=== PATIENT | female | born 2005 | race Hispanic/Latino ===

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

== ENCOUNTER 2023-07-01 09:49 | Emergency (ER) | payer MEDICAID ==
[~2023-07-01] VITALS: Ht 167 cm; Wt 120.0 kg
[~2023-07-01 09:49] MED LIST changes: +ACHD5005 PO; +DOCU-143 PO
[2023-07-01 11:22] LABS: BASOPHILS % (AUTO) 0 % (0-10); EOSINOPHILS # (AUTO) 0.1 10^3/uL (0.0-0.3); EOSINOPHILS % (AUTO) 0 % (0-10); HEMATOCRIT 40 % (35-52); HEMOGLOBIN 13.8 g/dL (11.5-16.0); LYMPHOCYTES # (AUTO) 3.4 10^3/uL (1.0-4.0); LYMPHOCYTES % (AUTO) 25 % (12-44); MEAN CORPUSCULAR HEMOGLOBIN 30 pg (25-34); MEAN CORPUSCULAR HGB CONC 35 g/dL (32-36); MEAN CORPUSCULAR VOLUME 88 fL (80-99); MEAN PLATELET VOLUME 9.4 fL (9.0-12.2); MONOCYTES % (AUTO) 8 % (0-12); NEUTROPHILS % (AUTO) 67 % (42-75); PLATELET COUNT 362 10^3/uL (130-400); WHITE BLOOD COUNT 13.6 10^3/uL (4.3-11.0)
--- NOTE | 2023-07-01 11:40 | ED GU-Female ---
General Chief Complaint: OB < 20 WEEKS Stated Complaint: MISCARRIAGE | VAGINAL BLEEDING Nursing Triage Note: PT AMB TO RM 10 PT STATES HAD MISCARRIAGE AT APPROX 0200 THIS AM. PT STATES PASSED TISSUE. PT STATES EARLIER HAD ALOT OF BLEEDING BUT HAS SLOWED TO A PAD EVERY FEW HOURS. PT STATES HAVING CRAMPING IN LOWER ABD 7/10 PAIN. HAS TAKEN TYLENOL AT APPROX 0400. PT STATES FROM ULTRA SOUND AT [facility] SHE IS APPROX 11-12 WEEKS . PT HAS BROUGHT TISSUE SHE PASSED WITH HER. History of Present Illness Date Seen by Provider: Jul 01, 2023 Time Seen by Provider: 10:18 Initial Comments 18-year-old female presents with concerns for miscarriage. Patient reports that she is approximately 11 to 12 weeks and passed some tissue around 2 AM this morning. Patient reports she had quite a bit of bleeding at the time but now that has slowed. She is still having some cramping in her lower abdomen. She did take some Tylenol around 4:00 for the discomfort. Reports that she did bring the tissue that she passed with her. Allergies and Home Medications Allergies Coded Allergies: Dolores Known Allergies (Unverified Allergy, Mild, 10/25/09) Patient Home Medication List Home Medication List Reviewed: Yes Docusate Sodium (Colace) 100 Mg Capsule, 100 MG PO BID Prescribed by: NICHOLE ENGLE on 02/19/21905 Hydrocodone/Acetaminophen (Hydrocodone-Acetamin 5-325 mg) 1 Each Tablet, 1 EACH PO Q4H PRN for PAIN-MODERATE (5-7) Prescribed by: NICHOLE ENGLE on 02/19/21905 Review of Systems Review of Systems Constitutional: see HPI Respiratory: no symptoms reported Cardiovascular: no symptoms reported Gastrointestinal: no symptoms reported Genitourinary: see HPI : Yes Musculoskeletal: no symptoms reported Skin: no symptoms reported Psychiatric/Neurological: No Symptoms Reported Endocrine: No Symptoms Reported Hematologic/Lymphatic: No Symptoms Reported Past Vcpntml-Xmysod-Fmxejb Hx Immunizations Up To Date PED Vaccines UTD: Yes Seasonal Allergies Seasonal Allergies: Yes Past Medical History Surgeries: Yes (OVARIAN CYST REMOVED) Respiratory: Yes Asthma Currently Using CPAP: No Currently Using BIPAP: No Cardiac: No Neurological: No Last Menstrual Period: March 18, 2023 Reproductive Disorders: No Female Reproductive Disorders: Ovarian Cyst Sexually Transmitted Disease: No HIV/AIDS: No Genitourinary: No Gastrointestinal: No Musculoskeletal: No Endocrine: No HEENT: No Cancer: No Did You Recieve Any Treatments: No Psychosocial: No Integumentary: No Blood Disorders: No Adverse Reaction/Blood Tranf: No Family Medical History No Pertinent Family Hx Physical Exam Vital Signs Vital Signs - First Documented 07/01/23 10:20 Temp 37.4 Pulse 99 Resp 16 B/P (MAP) 136/81 (99) Pulse Ox 98 Capillary Refill : Less Than 3 Seconds Height, Weight, BMI Height: '" Weight: lbs. oz. kg; 43.00 BMI Method:Actual General Appearance: WD/WN, no apparent distress Cardiovascular: normal peripheral pulses, regular rate, rhythm Respiratory: lungs clear, normal breath sounds Gastrointestinal: soft, other (Mild tenderness lower abdomen) Neurologic/Psychiatric: alert, normal mood/affect, oriented x 3 Skin: normal color, warm/dry Progress/Results/Core Measures Suspected Sepsis SIRS Temperature: Pulse: 99 Respiratory Rate: 16 Laboratory Tests 07/01/23 10:59: White Blood Count 13.6H Blood Pressure 136 /81 Mean: 99 Laboratory Tests 07/01/23 10:59: Platelet Count 362 Results/Orders Lab Results Laboratory Tests Test 07/01/23 10:59 Range/Units White Blood Count 13.6 H 4.3-11.0 10^3/uL Red Blood Count 4.55 3.80-5.11 10^6/uL Hemoglobin 13.8 11.5-16.0 g/dL Hematocrit 40 35-52 % Mean Corpuscular Volume 88 80-99 fL Mean Corpuscular Hemoglobin 30 25-34 pg Mean Corpuscular Hemoglobin Concent 35 32-36 g/dL Red Cell Distribution Width 12.4 10.0-14.5 % Platelet Count 362 130-400 10^3/uL Mean Platelet Volume 9.4 9.0-12.2 fL Immature Granulocyte % (Auto) 0 % Neutrophils (%) (Auto) 67 42-75 % Lymphocytes (%) (Auto) 25 12-44 % Monocytes (%) (Auto) 8 0-12 % Eosinophils (%) (Auto) 0 0-10 % Basophils (%) (Auto) 0 0-10 % Neutrophils # (Auto) 9.0 H 1.8-7.8 10^3/uL Lymphocytes # (Auto) 3.4 1.0-4.0 10^3/uL Monocytes # (Auto) 1.0 0.0-1.0 10^3/uL Eosinophils # (Auto) 0.1 0.0-0.3 10^3/uL Basophils # (Auto) 0.0 0.0-0.1 10^3/uL Immature Granulocyte # (Auto) 0.1 0.0-0.1 10^3/uL Human Chorionic Gonadotropin, Quant [id number] H <5 MIU/ML My Orders Orders - CLAY SINGLEOTN DO Hcg,Quantitative (07/01/23 10:26) Cbc With Automated Diff (07/01/23 10:34) Abo Rh Type (07/01/23 10:35) General/Regular (07/01/23 Lunch) Vital Signs/I&O 07/01/23 10:20 Temp 37.4 Pulse 99 Resp 16 B/P (MAP) 136/81 (99) Pulse Ox 98 Capillary Refill : Less Than 3 Seconds Blood Pressure Mean: 99 Progress Note : Progress Note Patient with complete miscarriage. Patient's "tissue" was actually a fetus approximately 17 weeks weighing 400 g. Patient's OB was contacted who came and seen her in the ER. Based on the records she did have 2 ultrasounds and is Rh+. It was determined that on June 18 she was approximately 12 weeks . The fetus is under 20 weeks further records. Patient was seen in the ER by her OB, pastoral care and OB nurse. At this time no further work-up is indicated. We will give her off next week as she is to follow-up with her OB with appointme nt already been made prior to returning to work. At this time stable and discharged home . Departure Impression Primary Impression: Complete miscarriage Disposition: 01 HOME, SELF-CARE Condition: Stable Departure-Patient Inst. Referrals: [facility] (PCP/Family) Primary Care Physician Add. Discharge Instructions: please follow with Dr Pace on 07/08 at 940am. Call her office with any concerns or return to ER All discharge instructions reviewed with patient and/or family. Voiced understanding. Work/School Note: Work Release Form Date Seen in the Emergency Department: Jul 01, 2023 Return to Work: Jul 08, 2023 Restrictions: Patient to follow-up with hearing care practitioner prior to clearance for return CLAY SINGLETON DO Jul 01, 2023 11:40
[2023-07-01 12:31] VITALS: BP 135/90
--- NOTE | 2023-07-01 13:54 | Consultation ---
HPI History of Present Illness: 18 yo G1 at 13w4d by 11 week US with unsure LMP presented to ER due to miscarriage last night. She states she had some cramping, thought it was normal but then delivered a fully formed fetus, followed by some dark nearly black clumpy material. She had very heavy bleeding with some clots and some tissue for a few hours after, that has now slowed down markedly. She denies chest pain, shortness of breath, dizziness. She did feel sick a few days ago with feverish type symptoms and body aches, had thought possible COVID as it was present at the [employer] she works at, positive case on Tuesday, she worked on Tuesday in a different area, she does not feel sick any longer. Source: patient Date seen by provider: Jul 01, 2023 Time Seen by Provider: 11:30 Attending Physician [facility] P[facility] Admitting Physician: Attending Physician: Consult Date of Admission Home Medications Home Medications Reviewed patient Home Medication Reconciliation performed by pharmacy medication reconciliations nanotechnology engineering technician and/or nursing. Patients Allergies have been reviewed. Allergies Coded Allergies: NKANo Known Allergies (Unverified Allergy, Mild, 10/25/09) NNS-Yphdkw-Tgxrln Hx Patient Social History Smoking Status: Never a Smoker 2nd Hand Smoke Exposure: No Recent Hopitalizations: No Alcohol Use?: No Immunizations Up To Date First/Initial COVID19 Vaccinat: YES Second COVID19 Vaccination Ian: YES Past Medical History PMHx: PCOS SurgHx: ovarian cyst removal Family Medical History Significant Family History: No Pertinent Family Hx Review of Systems ([facility]) Constitutional: No fever Respiratory: No short of breath Cardiovascular: No chest pain Genitourinary: no symptoms reported Musculoskeletal: see HPI Skin: no symptoms reported Reviewed Test Results Reviewed Test Results Lab Laboratory Tests Test 07/01/23 10:59 Range/Units White Blood Count 13.6 H 4.3-11.0 10^3/uL Red Blood Count 4.55 3.80-5.11 10^6/uL Hemoglobin 13.8 11.5-16.0 g/dL Hematocrit 40 35-52 % Mean Corpuscular Volume 88 80-99 fL Mean Corpuscular Hemoglobin 30 25-34 pg Mean Corpuscular Hemoglobin Concent 35 32-36 g/dL Red Cell Distribution Width 12.4 10.0-14.5 % Platelet Count 362 130-400 10^3/uL Mean Platelet Volume 9.4 9.0-12.2 fL Immature Granulocyte % (Auto) 0 % Neutrophils (%) (Auto) 67 42-75 % Lymphocytes (%) (Auto) 25 12-44 % Monocytes (%) (Auto) 8 0-12 % Eosinophils (%) (Auto) 0 0-10 % Basophils (%) (Auto) 0 0-10 % Neutrophils # (Auto) 9.0 H 1.8-7.8 10^3/uL Lymphocytes # (Auto) 3.4 1.0-4.0 10^3/uL Monocytes # (Auto) 1.0 0.0-1.0 10^3/uL Eosinophils # (Auto) 0.1 0.0-0.3 10^3/uL Basophils # (Auto) 0.0 0.0-0.1 10^3/uL Immature Granulocyte # (Auto) 0.1 0.0-0.1 10^3/uL Human Chorionic Gonadotropin, Quant [id number] H <5 MIU/ML Physical Exam-([facility]) Physical Exam Vital Signs VS - Last 72 Hours, by Label 07/01/23 07/01/23 10:20 12:31 Temp 37.4 Pulse 99 72 Resp 16 16 B/P (MAP) 136/81 (99) 135/90 Pulse Ox 98 97 Capillary Refill : Less Than 3 Seconds General Appearance: WD/WN, no apparent distress Respiratory: lungs clear Cardiovascular: regular rate, rhythm, no murmur Gastrointestinal: normal bowel sounds, non tender, soft Extremities: no pedal edema Neurologic/Psychiatric: alert, normal mood/affect Skin: normal color, warm/dry Assessment/Plan Assessment/Plan (1) Complete miscarriage Status: Acute Assessment & Plan: Suspect complete miscarriage given history, but at 13 weeks and with prior normal ultrasound and FHTs, uncertain cause and higher risk for retained products and infection. Discussed signs to watch for including fever, increased bleeding, pain and that she should come back to the ER if those occur. Will follow up in clinic early next week to monitor symptoms, vitals and labs. Offered to have [facility]/therapy reach out, she declined. JOHN HEATH MD Jul 01, 2023 13:54
== END 2023-07-01 12:31 | disposition home or self-care (01) ==
LOC: EDUNIT# 09:49 → ER 09:51
DX: O03.9 Complete or unspecified spontaneous abortion without complication (principal)
CPT/HCPCS: 36415; 84702; 85025; 86900; 86901; 99282

== ENCOUNTER 2023-07-04 16:28 | Day surgery (SDC) | payer MEDICAID ==
[2023-07-04] VITALS (8 sets, daily range): BP systolic 111–133; BP diastolic 67–79
[~2023-07-04] VITALS: Ht 167 cm; Wt 120.2 kg
[2023-07-04] MEDS ORDERED: fentaNYL INJECTION 100 MCG/2 ML VIAL IVP STA (16:56)
[2023-07-04] MEDS ORDERED: fentaNYL INJECTION 100 MCG/2 ML VIAL ONE ×2 (16:58→20:02)
[2023-07-04] MEDS ORDERED: ACETAMINOPHEN 500 MG TABLET PO PRN (17:00)
[2023-07-04] MEDS ORDERED: NS IV 1000 ML 1,000 ML IV SCH (17:00)
[2023-07-04 17:04] LABS: BASOPHILS # (AUTO) 0.1 10^3/uL (0.0-0.1); BASOPHILS % (AUTO) 1 % (0-10); EOSINOPHILS # (AUTO) 0.2 10^3/uL (0.0-0.3); EOSINOPHILS % (AUTO) 2 % (0-10); HEMATOCRIT 34 % (35-52); HEMOGLOBIN 11.7 g/dL (11.5-16.0); LYMPHOCYTES # (AUTO) 3.7 10^3/uL (1.0-4.0); LYMPHOCYTES % (AUTO) 32 % (12-44); MEAN CORPUSCULAR HEMOGLOBIN 31 pg (25-34); MEAN CORPUSCULAR HGB CONC 35 g/dL (32-36); MEAN CORPUSCULAR VOLUME 89 fL (80-99); MEAN PLATELET VOLUME 9.4 fL (9.0-12.2); MONOCYTES % (AUTO) 9 % (0-12); NEUTROPHILS # (AUTO) 6.6 10^3/uL (1.8-7.8); NEUTROPHILS % (AUTO) 57 % (42-75); PLATELET COUNT 337 10^3/uL (130-400); WHITE BLOOD COUNT 11.6 10^3/uL (4.3-11.0)
[2023-07-04 17:10] LABS: POTASSIUM 3.8 MMOL/L (3.6-5.0)
[2023-07-04 17:11] LABS: CALCIUM 8.9 MG/DL (8.5-10.1)
[2023-07-04 17:12] LABS: TOTAL PROTEIN 6.4 GM/DL (6.4-8.2)
[2023-07-04 17:14] LABS: BILIRUBIN,TOTAL 0.2 MG/DL (0.1-1.0)
[2023-07-04 17:16] LABS: CREATININE SERUM 0.71 MG/DL (0.60-1.30)
--- NOTE | 2023-07-04 17:16 | ED Abdominal Pain ---
General Chief Complaint: Abdominal/GI Problems Stated Complaint: BLEEDING/PAIN FEVER Nursing Triage Note: ARRIVED VIA AMB TO ROOM 06. PT HAD A MISCARRIAGE ON TUESDAY AND WAS SEEN HERE. TODAY COMPLAINS OF LOWER ABD PAIN, HEAVY BLEEDING, AND FEVER. LAST DOSE OF TYLENOL WAS THIS AM. PT IS DIAPHORETIC. History of Present Illness Date Seen by Provider: Jul 04, 2023 Time Seen by Provider: 16:45 Initial Comments 18-year-old female presents for increased abdominal pain and vaginal bleeding. She was seen in this emergency department on 07/01/23 for a miscarriage, she passed fetus several hours before presenting, no ultrasound was performed. She was evaluated by her OB in the emergency department. Labs were stable and she was discharged to home. She had minimal bleeding through the weekend and no fevers. She reports that approximately 1500 today sharp lower abdominal and pelvic pain with increased vaginal bleeding. Bleeding has been dark red to brown. She has saturated one pad, in last hour. She is O+, this was her first . She has tried Tylenol for the fever and pain, last dose 10:00 am She last had solid food at 12:00 today, she has had sips of water and orange juice throughout the afternoon. Timing/Duration: 1-3 Hours Severity/Quality: Moderate Location: Suprapubic Radiation: Flank (bilat) Associated Symptoms: Back Pain (low back); No Chest Pain; Diaphoresis, Fever/ Chills; No Headache, No Nausea/Vomiting, No Shortness of Air, No Swelling/Mass in Abdomen, No Weakness Allergies and Home Medications Allergies Coded Allergies: NKANo Known Allergies (Unverified Allergy, Mild, 10/25/09) Patient Home Medication List Home Medication List Reviewed: Yes Cephalexin (Cephalexin) 500 Mg Tablet, 500 MG PO QID Prescribed by: SHARMAINE HU on 07/04/232003 Ibuprofen (Ibuprofen) 600 Mg Tablet, 600 MG PO Q6H Prescribed by: SHARMAINE HU on 07/04/232003 Discontinued Medications Docusate Sodium (Colace) 100 Mg Capsule, 100 MG PO BID Prescribed by: NICHOLE ENGLE on 02/19/21905 Hydrocodone/Acetaminophen (Hydrocodone-Acetamin 5-325 mg) 1 Each Tablet, 1 EACH PO Q4H PRN for PAIN-MODERATE (5-7) Prescribed by: NICHOLE ENGLE on 4/8/21 0906 Review of Systems Review of Systems Constitutional: no symptoms reported, see HPI Gastrointestinal: See HPI, Abdominal Pain Genitourinary: See HPI, Discharge (vaginal bleeding) All Other Systems Reviewed Negative Unless Noted: Yes Past Ojbovby-Tuclcj-Laiwqd Hx Patient Social History Tobacco Use?: No Substance use?: No Alcohol Use?: No Immunizations Up To Date PED Vaccines UTD: Yes First/Initial COVID19 Vaccinat: YES Second COVID19 Vaccination Ian: YES Seasonal Allergies Seasonal Allergies: Yes Past Medical History Surgery/Hospitalization HX: NONE Surgeries: Yes (OVARIAN CYST REMOVED) Respiratory: Yes Asthma Currently Using CPAP: No Currently Using BIPAP: No Cardiac: No Neurological: No : No Last Menstrual Period: March 18, 2023 Hx : 1 Hx Para: 0 Hx Total # of Abortions (Sp): 1 Reproductive Disorders: No Female Reproductive Disorders: Ovarian Cyst Sexually Transmitted Disease: No HIV/AIDS: No Genitourinary: No Gastrointestinal: No Musculoskeletal: No Endocrine: No HEENT: No Cancer: No Did You Recieve Any Treatments: No Psychosocial: No Integumentary: No Blood Disorders: No Adverse Reaction/Blood Tranf: No Family Medical History Reviewed Nursing Family Hx No Pertinent Family Hx Physical Exam Vital Signs Vital Signs - First Documented 07/04/23 16:35 Temp 38.1 Pulse 84 Resp 16 B/P (MAP) 140/83 (102) Pulse Ox 98 O2 Delivery Room Air Capillary Refill : Less Than 3 Seconds Height/Weight/BMI Height: '" Weight: lbs. oz. kg; 43.00 BMI Method:Actual General Appearance: WD/WN, mild distress (secondary for pain) Neck: non-tender, full range of motion, supple, normal inspection Respiratory: chest non-tender, lungs clear, normal breath sounds Cardiovascular: normal peripheral pulses, regular rate, rhythm Gastrointestinal: normal bowel sounds, soft, tenderness (lower abdomen, pelvis and bilat flank pain) Neurologic/Psychiatric: no motor/sensory deficits, alert, normal mood/affect, oriented x 3 Skin: normal color, warm/dry Focused Exam Lactate Level 07/04/23 16:55: Lactic Acid Level 1.53 Lactic Acid Level Laboratory Tests Test 07/04/23 16:55 Lactic Acid Level 1.53 MMOL/L (0.50-2.00) Progress/Results/Core Measures Results/Orders Lab Results Laboratory Tests Test 07/04/23 16:55 07/04/23 18:08 Range/Units White Blood Count 11.6 H 4.3-11.0 10^3/uL Red Blood Count 3.80 3.80-5.11 10^6/uL Hemoglobin 11.7 11.5-16.0 g/dL Hematocrit 34 L 35-52 % Mean Corpuscular Volume 89 80-99 fL Mean Corpuscular Hemoglobin 31 25-34 pg Mean Corpuscular Hemoglobin Concent 35 32-36 g/dL Red Cell Distribution Width 12.4 10.0-14.5 % Platelet Count 337 130-400 10^3/uL Mean Platelet Volume 9.4 9.0-12.2 fL Immature Granulocyte % (Auto) 0 % Neutrophils (%) (Auto) 57 42-75 % Lymphocytes (%) (Auto) 32 12-44 % Monocytes (%) (Auto) 9 0-12 % Eosinophils (%) (Auto) 2 0-10 % Basophils (%) (Auto) 1 0-10 % Neutrophils # (Auto) 6.6 1.8-7.8 10^3/uL Lymphocytes # (Auto) 3.7 1.0-4.0 10^3/uL Monocytes # (Auto) 1.0 0.0-1.0 10^3/uL Eosinophils # (Auto) 0.2 0.0-0.3 10^3/uL Basophils # (Auto) 0.1 0.0-0.1 10^3/uL Immature Granulocyte # (Auto) 0.1 0.0-0.1 10^3/uL Prothrombin Time 13.7 12.2-14.7 SEC INR Comment 1.0 0.8-1.4 Activated Partial Thromboplast Time 27 24-35 SEC Sodium Level 141 135-145 MMOL/L Potassium Level 3.8 3.6-5.0 MMOL/L Chloride Level 109 H 98-107 MMOL/L Carbon Dioxide Level 23 21-32 MMOL/L Anion Gap 9 5-14 MMOL/L Blood Urea Nitrogen 8 7-18 MG/DL Creatinine 0.71 0.60-1.30 MG/DL Estimat Glomerular Filtration Rate 125 BUN/Creatinine Ratio 11 Glucose Level 117 H 70-105 MG/DL Lactic Acid Level 1.53 0.50-2.00 MMOL/L Calcium Level 8.9 8.5-10.1 MG/DL Corrected Calcium 8.9 8.5-10.1 MG/DL Total Bilirubin 0.2 0.1-1.0 MG/DL Aspartate Amino Transf (AST/SGOT) 18 5-34 U/L Alanine Aminotransferase (ALT/SGPT) 31 0-55 U/L Alkaline Phosphatase 56 40-136 U/L Total Protein 6.4 6.4-8.2 GM/DL Albumin 4.0 3.2-4.5 GM/DL Urine Color RED H Urine Clarity CLEAR Urine pH >=9.0 5-9 Urine Specific [place] 1.015 L 1.016-1.022 Urine Protein 3+ H NEGATIVE Urine Glucose (UA) NEGATIVE NEGATIVE Urine Ketones 1+ H NEGATIVE Urine Nitrite POSITIVE H NEGATIVE Urine Bilirubin 1+ H NEGATIVE Urine Urobilinogen 1.0 < = 1.0 MG/DL Urine Leukocyte Esterase TRACE H NEGATIVE Urine RBC (Auto) 3+ H NEGATIVE Urine RBC TNTC H /HPF Urine WBC 2-5 /HPF Urine Squamous Epithelial Cells 5-10 /HPF Urine Crystals PRESENT H /LPF Urine Amorphous Sediment RARE ABIGAIL URATES H /LPF Urine Bacteria TRACE /HPF Urine Casts NONE /LPF Urine Mucus SMALL H /LPF Urine Culture Indicated CULTURE PENDING My Orders Orders - LILY FIGUEROA Cbc With Automated Diff (07/04/23 16:56) Comprehensive Metabolic Panel (07/04/23 16:56) Blood Culture (07/04/23 16:56) Urinalysis (07/04/23 16:56) Urine Culture (07/04/23 16:56) Protime With Inr (07/04/23 16:56) Partial Thromboplastin Time (07/04/23 16:56) Chest 1 View, Ap/Pa Only (07/04/23 16:56) Acetaminophen Tablet (Acetaminophen Ta (07/04/23 17:00) Ed Iv/Invasive Line Start (07/04/23 16:56) Vital Signs Adult Sepsis Patie Q15M (07/04/23 16:56) Lactic Acid Analyzer (07/04/23 16:56) Ns Iv 1000 Ml (Sodium Chloride 0.9%) (07/04/23 17:00) Fentanyl Injection (Fentanyl Injection (07/04/23 16:56) Fentanyl Injection (Fentanyl Injection (07/04/23 16:58) Us Ob<14 Wks Sngle W/Transvag (07/04/23 16:56) Misoprostol Tablet (Misoprostol Tablet) (07/04/23 18:21) Medications Given in ED Current Medications Medications Dose Ordered Sig/Mo Route Start Time Stop Time Status Last Admin Dose Admin Acetaminophen 1,000 mg ONCE PRN PO 07/04/23 17:00 07/04/23 17:32 DC 07/04/23 17:31 1,000 MG Cefazolin Sodium 2000 mg/Sodium Chloride 50 ml @ 100 mls/hr ONCE ONCE IV 07/04/23 20:00 07/04/23 22:18 DC 07/04/23 20:17 100 MLS/HR Ketorolac Tromethamine 30 mg ONCE ONCE IVP 07/04/23 20:00 07/04/23 22:18 DC 07/04/23 21:13 30 MG Vital Signs/I&O 07/04/23 16:35 Temp 38.1 Pulse 84 Resp 16 B/P (MAP) 140/83 (102) Pulse Ox 98 O2 Delivery Room Air Blood Pressure Mean: 102 Progress Progress Note : Time: 16:45 Progress Note Patient assessed, will obtain labs, septic work-up, ultrasound to determine if retained placental matter, IV fluids, Tylenol 1000 mg for fever, fentanyl 50 mcg IV for pain. [address] Hu about patient, recommended giving Cytotec and awaiting ultrasound. Hgb 13.7 on 07/01/23, now 11.7. 1814 patient reports less pain. To US. 0 less vaginal bleeding, changed pad approx 15 min ago. 1909 US results reviewed with Dr. Hu, recommended D shanelle CDeng Cap Coverer notified. Discussed with patient, she is agreeable with surgical plan. Temp 99.[address] Hu in ED to assess patient. Diagnostic Imaging Diagonstic Imaging: Xray Plain Films/CT/US/NM/MRI: chest Comments NAME: RAYMOND [facility] REC#: [id number] PT STATUS: REG ER : 2003 PHYSICIAN: LILY FIGUEROA SHREDDED FILLER CUTTER OPERATOR ADMIT DATE: 07/04/23/ER Signed Date of Exam:07/04/23 CHEST 1 VIEW, AP/PA ONLY CHEST 1 VIEW, AP/PA ONLY INDICATION: SOA. COMPARISON: None. FINDINGS: Lungs: Low lung volume. No focal consolidation. Stable pulmonary vasculature. Pleura: No pleural effusion or pneumothorax. Heart and Mediastinum: Cardiomediastinal silhouette and great vessels of the thorax are stable. Osseous Structures and Soft Tissues: No acute osseous abnormality. Normal soft tissues. IMPRESSION: No acute cardiopulmonary process. Dictated by: Dictated on workstation # [id number] Dict: 07/04/231736 Trans: 07/04/231738 [facility] [id number] Interpreted by: DILMA KERR DO Electronically signed by: DILMA KERR DO 07/04/231738 Reviewed: Reviewed by Me Diagonstic Imaging: Ultrasound Plain Films/CT/US/NM/MRI: pelvis Comments NAME: RAYMOND MARION [facility] REC#: [id number] PT STATUS: REG ER : 2003 PHYSICIAN: LILY FIGUEROA ADMIT DATE: 07/04/23/ER Signed Date of Exam:07/04/23 US OB<14 WKS SNGLE W/TRANSVAG EXAMINATION: Transabdominal and transvaginal vaginal pelvic ultrasound TECHNIQUE: Transabdominal transpelvic pelvic ultrasound performed. HISTORY: miscarriage possible retained tissue, fever, bleeding. Miscarriage last week. COMPARISON: Pelvic ultrasound on 04/05/2017 FINDINGS: The uterus measures 12.5 x 5.9 x 6.4 cm. The endometrium demonstrates extensive heterogenous thickening measuring between 1.5 to 2.2 cm with areas of increased vascularity. There is a cystic mass within the right adnexa measuring 6.1 x 4.7 x 4.2 cm. The left ovary measures 2.6 x 2.0 x 1.6 cm and has a normal appearance. No free fluid within the pelvis. IMPRESSION: Findings concerning for retained products of conception with significant thickening of the endometrium with areas of increased vascularity. Right adnexal cyst measuring 6.1 x 4.7 x 4.2 cm possibly representing a right ovarian cyst. Recommend attention on follow-up exam. Dictated by: Dictated on workstation # [id number] Dict: 07/04/231906 Trans: 07/04/231909 [facility] [id number] Interpreted by: DILMA KERR DO Electronically signed by: DILMA KERR DO 07/04/231909 Departure Impression Primary Impression: Vaginal bleeding Additional Impressions: Retained placenta Qualified Codes: O73.0 - Retained placenta without hemorrhage Incomplete miscarriage UTI (urinary tract infection) Qualified Codes: N30.01 - Acute cystitis with hematuria Disposition: ADMITTED INPATIENT Condition: Stable Admissions Decision to Admit/Date: Jul 04, 2023 Time/Decision to Admit Time: 19:05 Departure-Patient Inst. Referrals: [facility] (PCP/Family) Primary Care Physician Scripts Cephalexin (Cephalexin) 500 Mg Tablet 500 MG PO QID, #28 TAB Prov: SHARMAINE HU DO 07/04/23 Ibuprofen (Ibuprofen) 600 Mg Tablet 600 MG PO Q6H for PAIN, #60 TAB 0 Refills Prov: SHARMAINE HU DO 07/04/23 Copy Copies To 1: JOHN HEATH MD, AMY ARNP Jul 04, 2023 17:16
[2023-07-04 17:27] LABS: PROTHROMBIN TIME PATIENT 13.7 SEC (12.2-14.7)
--- NOTE | 2023-07-04 17:40 | Diagnostic Imaging Report ---
CHEST 1 VIEW, AP/PA ONLY INDICATION: SOA. COMPARISON: None. FINDINGS: Lungs: Low lung volume. No focal consolidation. Stable pulmonary vasculature. Pleura: No pleural effusion or pneumothorax. Heart and Mediastinum: Cardiomediastinal silhouette and great vessels of the thorax are stable. Osseous Structures and Soft Tissues: No acute osseous abnormality. Normal soft tissues. IMPRESSION: No acute cardiopulmonary process. Dictated by: Dictated on workstation # [id number]
[2023-07-04 19:00] LABS: CLARITY,URINE CLEAR; COLOR,URINE RED; GLUCOSE, URINE (UA) NEGATIVE (NEGATIVE); KETONES,URINE 1+ (NEGATIVE); LEUKOCYTE ESTERASE ,URINE TRACE (NEGATIVE); NITRITE,URINE POSITIVE (NEGATIVE); PH,URINE >=9.0 (5-9); PROTEIN,URINE 3+ (NEGATIVE); RBC,URINE TNTC /HPF
[2023-07-04 19:01] LABS: AMORPHOUS SEDIMENT,UR RARE AMOR URATES /LPF; BACTERIA,URINE TRACE /HPF; BILIRUBIN,URINE 1+ (NEGATIVE)
--- NOTE | 2023-07-04 19:12 | Diagnostic Imaging Report ---
EXAMINATION: Transabdominal and transvaginal vaginal pelvic ultrasound TECHNIQUE: Transabdominal transpelvic pelvic ultrasound performed. HISTORY: miscarriage possible retained tissue, fever, bleeding. Miscarriage last week. COMPARISON: Pelvic ultrasound on 04/05/2017 FINDINGS: The uterus measures 12.5 x 5.9 x 6.4 cm. The endometrium demonstrates extensive heterogenous thickening measuring between 1.5 to 2.2 cm with areas of increased vascularity. There is a cystic mass within the right adnexa measuring 6.1 x 4.7 x 4.2 cm. The left ovary measures 2.6 x 2.0 x 1.6 cm and has a normal appearance. No free fluid within the pelvis. IMPRESSION: Findings concerning for retained products of conception with significant thickening of the endometrium with areas of increased vascularity. Right adnexal cyst measuring 6.1 x 4.7 x 4.2 cm possibly representing a right ovarian cyst. Recommend attention on follow-up exam. Dictated by: Dictated on workstation # [id number]
[2023-07-04] MEDS ORDERED: D5 LR 1,000 ML IV SOLN 1,000 ML IV SCH (20:00)
[2023-07-04] MEDS ORDERED: KETOROLAC INJ 30 MG/ML VIAL IVP ONE (20:00)
[2023-07-04] MEDS ORDERED: ONDANSETRON INJECTION 4 MG/2 ML (SDV) IVP PRN ×2 (20:00→21:15)
[2023-07-04] MEDS ORDERED: HYDROcodone/ACETAMINOPHEN 5 MG/325 MG TABLET PO PRN (20:00)
[2023-07-04] MEDS ORDERED: ceFAZolin INJECTION 2,000 MG in NS (IVPB) 50 ML 50 ML IV ONE (20:00)
--- NOTE | 2023-07-04 20:01 | History & Physical-Surgical ---
HPO-Surgical History of Present Illness Chief Complaint: ARRIVED VIA AMB TO ROOM 06. PT HAD A MISCARRIAGE ON TUESDAY AND WAS SEEN HERE. TODAY COMPLAINS OF LOWER ABD PAIN, HEAVY BLEEDING, AND FEVER. LAST DOSE OF TYLENOL WAS THIS AM. PT IS DIAPHORETIC. Diagnosis/Surgical Indication: Incomplete Ab Procedure: Suction D and C Date of Surgery: Jul 04, 2023 Allergies and Home Medications Allergies Coded Allergies: NKANo Known Allergies (Unverified Allergy, Mild, 10/25/09) Patient Home Medication List Home Medication List Reviewed: Yes Docusate Sodium (Colace) 100 Mg Capsule, 100 MG PO BID Prescribed by: NICHOLE ENGLE on 02/19/21905 Hydrocodone/Acetaminophen (Hydrocodone-Acetamin 5-325 mg) 1 Each Tablet, 1 EACH PO Q4H PRN for PAIN-MODERATE (5-7) Prescribed by: NICHOLE ENGLE on 02/19/21905 Past Lyckcrx-Xguovm-Evgupi Hx Patient Social History 2nd Hand Smoke Exposure: No Recent Hopitalizations: No Alcohol Use?: No Immunizations Up To Date Pediatric: Yes Seasonal Allergies Seasonal Allergies: Yes Surgeries Yes (OVARIAN CYST REMOVED) Respiratory Yes Currently Using CPAP: No Currently Using BIPAP: No Cardiovascular No Neurological No Reproductive System : No Last Menstrual Period: March 18, 2023 Hx : 1 Hx Para: 0 Hx Total # of Abortions (Spona: 1 Hx Reproductive Disorders: No Sexually Transmitted Disease: No HIV/AIDS: No Female Reproductive Disorders: Ovarian Cyst Genitourinary No Gastrointestinal No Musculoskeletal No Endocrine History of Endocrine Disorders: No HEENT History of HEENT Disorders: No Cancer No Did You Recieve Any Treatments: No Psychosocial History of Psychiatric Problem: No Integumentary History of Skin or Integumenta: No Blood Transfusions History of Blood Disorders: No Adverse Reaction to a Blood Tr: No Family Medical History Significant Family History: No Pertinent Family Hx Exam Vital Signs Vital Signs 07/04/23 16:35 Temp 38.1 Pulse 84 Resp 16 B/P (MAP) 140/83 (102) Pulse Ox 98 O2 Delivery Room Air Capillary Refill : Less Than 3 Seconds Labs Laboratory Tests Test 07/04/23 16:55 07/04/23 18:08 Range/Units White Blood Count 11.6 H 4.3-11.0 10^3/uL Red Blood Count 3.80 3.80-5.11 10^6/uL Hemoglobin 11.7 11.5-16.0 g/dL Hematocrit 34 L 35-52 % Mean Corpuscular Volume 89 80-99 fL Mean Corpuscular Hemoglobin 31 25-34 pg Mean Corpuscular Hemoglobin Concent 35 32-36 g/dL Red Cell Distribution Width 12.4 10.0-14.5 % Platelet Count 337 130-400 10^3/uL Mean Platelet Volume 9.4 9.0-12.2 fL Immature Granulocyte % (Auto) 0 % Neutrophils (%) (Auto) 57 42-75 % Lymphocytes (%) (Auto) 32 12-44 % Monocytes (%) (Auto) 9 0-12 % Eosinophils (%) (Auto) 2 0-10 % Basophils (%) (Auto) 1 0-10 % Neutrophils # (Auto) 6.6 1.8-7.8 10^3/uL Lymphocytes # (Auto) 3.7 1.0-4.0 10^3/uL Monocytes # (Auto) 1.0 0.0-1.0 10^3/uL Eosinophils # (Auto) 0.2 0.0-0.3 10^3/uL Basophils # (Auto) 0.1 0.0-0.1 10^3/uL Immature Granulocyte # (Auto) 0.1 0.0-0.1 10^3/uL Prothrombin Time 13.7 12.2-14.7 SEC INR Comment 1.0 0.8-1.4 Activated Partial Thromboplast Time 27 24-35 SEC Sodium Level 141 135-145 MMOL/L Potassium Level 3.8 3.6-5.0 MMOL/L Chloride Level 109 H 98-107 MMOL/L Carbon Dioxide Level 23 21-32 MMOL/L Anion Gap 9 5-14 MMOL/L Blood Urea Nitrogen 8 7-18 MG/DL Creatinine 0.71 0.60-1.30 MG/DL Estimat Glomerular Filtration Rate 125 BUN/Creatinine Ratio 11 Glucose Level 117 H 70-105 MG/DL Lactic Acid Level 1.53 0.50-2.00 MMOL/L Calcium Level 8.9 8.5-10.1 MG/DL Corrected Calcium 8.9 8.5-10.1 MG/DL Total Bilirubin 0.2 0.1-1.0 MG/DL Aspartate Amino Transf (AST/SGOT) 18 5-34 U/L Alanine Aminotransferase (ALT/SGPT) 31 0-55 U/L Alkaline Phosphatase 56 40-136 U/L Total Protein 6.4 6.4-8.2 GM/DL Albumin 4.0 3.2-4.5 GM/DL Urine Color RED H Urine Clarity CLEAR Urine pH >=9.0 5-9 Urine Specific [place] 1.015 L 1.016-1.022 Urine Protein 3+ H NEGATIVE Urine Glucose (UA) NEGATIVE NEGATIVE Urine Ketones 1+ H NEGATIVE Urine Nitrite POSITIVE H NEGATIVE Urine Bilirubin 1+ H NEGATIVE Urine Urobilinogen 1.0 < = 1.0 MG/DL Urine Leukocyte Esterase TRACE H NEGATIVE Urine RBC (Auto) 3+ H NEGATIVE Urine RBC TNTC H /HPF Urine WBC 2-5 /HPF Urine Squamous Epithelial Cells 5-10 /HPF Urine Crystals PRESENT H /LPF Urine Amorphous Sediment RARE ABIGAIL URATES H /LPF Urine Bacteria TRACE /HPF Urine Casts NONE /LPF Urine Mucus SMALL H /LPF Urine Culture Indicated CULTURE PENDING General Appearance: Alert, Oriented X3 HEENT: Atraumatic Respiratory: Clear to Auscultation Cardiovascular: Regular Rate Abdominal: Normal Bowel Sounds Neuro: Normal Gait Psych/Mental Status: Mental Status NL Assessment/Plan Assessment and Plan Diagnosis: 18 yo @ 8-10 weeks by LMP Incomplete ab Plan: Suction D and C. Admission Diagnosis Diagnosis: 18 yo @ 8-10 weeks by LMP Incomplete ab Plan: Suction D and C. Admission Status: Other (Same Day Surgery) SHARMAINE ESPINOZA DO Jul 04, 2023 20:00
[2023-07-04] MEDS ORDERED: LIDOCAINE PF 2% 5 ML VIAL ONE (20:02)
[2023-07-04] MEDS ORDERED: proPOfol INJECTION 200 MG/20 ML VIAL IV ONE ×2 (20:02→20:31)
[2023-07-04] MEDS ORDERED: ONDANSETRON INJECTION 4 MG/2 ML (SDV) ONE (20:02)
[2023-07-04] MEDS ORDERED: MIDAZOLAM INJ 2 MG/2 ML VIAL ONE (20:02)
[2023-07-04] MEDS ORDERED: ceFAZolin INJECTION 2,000 MG ONE (20:03)
[2023-07-04] MEDS ORDERED: NS (IVPB) 50 ML 50 ML ONE (20:03)
--- NOTE | 2023-07-04 20:03 | Discharge Inst-Women's Service ---
Discharge Inst-Women's Serv Depart Medication/Instructions New, Converted or Re-Newed RX: Transmitted to Pharmacy Problems Reviewed?: Yes Consults/Follow Up Additional Follow Up: Yes Orders/Referrals Dr. Espinoza in 1-2 weeks Activity Activity: Activity as Tolerated Driving Instructions: No Driving for 1 Week NO SMOKING: NO SMOKING Nothing Inside Vagina: No Douching, No Bug Tussle, No Tampons Diet Discharge Diet: No Restrictions Symptoms to Report to : Bleeding Excessive, Pain Increased, Fever Over 101 Degrees F, Vaginal Bleeding Increase, Questions/Concerns For Any Problems or Questions: Contact Your Physician SHARMAINE ESPINOZA DO Jul 04, 2023 20:03
[2023-07-04] MEDS ORDERED: CEPH500T PO (20:04)
[2023-07-04] MEDS ORDERED: IBUP-1773 PO (20:04)
[2023-07-04] MEDS ORDERED: METHYLERGONOVINE INJ 0.2 MG/ML AMP IM ONE (20:35)
[2023-07-04] MEDS ORDERED: METHYLERGONOVINE INJ 0.2 MG/ML AMP ONE (20:38)
[2023-07-04] MEDS ORDERED: SEVOFLURANE (ULTANE) 15 ML INHAL SOLN ONE (20:45)
[2023-07-04] MEDS ORDERED: LACTATED RINGERS 1,000 ML 1,000 ML IV PRN (20:45)
[2023-07-04] MEDS ORDERED: KETOROLAC INJ 30 MG/ML VIAL ONE (21:13)
[2023-07-04] MEDS ORDERED: morphine INJ 10 MG/ML 1ML (SYR OR VIAL) IVP ONE (21:15)
--- NOTE | 2023-07-04 22:46 | Anesthesia-General Post-Op ---
General Patient Condition Mental Status/LOC: Same as Preop Cardiovascular: Satisfactory Nausea/Vomiting: Absent Respiratory: Satisfactory Pain: Controlled Complications: Absent Post Op Complications Complications None Follow Up Care/Instructions Patient Instructions None needed. Anesthesia/Patient Condition Patient Condition Patient is doing well, no complaints, stable vital signs, no apparent adverse anesthesia problems. No complications reported per nursing. RENETTA TOBIN CRNA Jul 04, 2023 22:46
--- NOTE | 2023-07-05 02:28 | OPERATIVE REPORT ---
DATE OF SERVICE: 07/04/2023 PREOPERATIVE DIAGNOSIS: A 18-year-old female with incomplete . POSTOPERATIVE DIAGNOSIS: A 18-year-old female with incomplete . PROCEDURE: Suction D and C. SURGEON: Donnell Hu DO ANESTHESIA: LMA general. ESTIMATED BLOOD LOSS: 200 mL. URINE OUTPUT: 400 mL clear at the end of the procedure. FLUIDS: 600 mL lactated Ringer's solution. FINDINGS: Grossly normal-appearing external female genitalia. Large amount of placental tissue and clot suspicious for retained products of conception. SPECIMEN SENT: Products of conception. INDICATIONS FOR PROCEDURE: This 18-year-old female is the patient who had come to the emergency department last Tuesday with passing a small fetus at home. She was seen in the emergency department. Ultrasound was not available at that point, but her bleeding had subsided, so it was suspected that she had a complete miscarriage; however, throughout the weekend her bleeding slowly picked up and increased. Her mother reported that she became febrile today and started to have more bleeding and clots, and was brought back to the emergency department, at which point, ultrasound was available, which showed a thickened endometrium, suspicious for retained products of conception. I discussed with the patient proceeding with suction D and C to resolve the situation, risk of procedure discussed with the patient and her mom. After all of her questions were answered, she was agreeable to proceed. Consent was obtained. The patient was taken to the operating room. OPERATIVE DESCRIPTION IN DETAIL: Once in the operating room, anesthesia was found to be adequate, she was placed in dorsal lithotomy position, prepped and draped in normal sterile fashion. A timeout was performed. The bladder was drained using straight catheterization. A weighted speculum inserted to the patient's vagina, which allows him visualize cervix and was grasped at 12 o'clock position using a long Allis clamp. I then gently sound uterine cavity depth, depth was found to be 8 cm. The cervix was dilated already due to a significant amount of blood clots and placental tissue that are identified in the cervix. They are removed using the ring forceps, gently teasing the out the cervix, at which point I performed a gentle suction curettage using a [place] curette. It is a #11 size. It was advanced into the uterine endometrial cavity. Ray suction was applied 70 mmHg suction applied, at which point I performed methodical rotation of the [place] suction curette clearing the endometrial cavity of all products of conception. This was done on several passes. There is still a significant amount of bleeding noted after this was done, a gentle sharp curettage was performed with endometrium and then I also performed ligating sutures at 3 and 9 o'clock position of the cervix using 0 Vicryl suture ligating and compressing the uterine vessels and the cervical branches of the uterine vessels. At which point, the bleeding slows down and I performed one final pass with the [place] suction curette at which point, the bleeding slows down significantly. As an added precaution, I have anesthesia administer 0.2 mg of Methergine IM to ensure excellent postoperative hemostasis. Two grams of Ancef were given preoperatively for infection prophylaxis due to duration of time from initial miscarriage retained products of conception. There was also suspicion for urinary tract infections. The patient was sent home on Keflex 500 mg q.i.d. x7 days. Lap and sponge counts were correct at the end of the procedure. Instrument counts correct as well. Job ID: [id number] DocumentID: [id number] Dictated Date: 07/04/2023 21:10:45 Business Banking Sales Assistant Date: 07/05/2023 02:25:00 Dictated By: DO CARLOS ACKERMAN
== END 2023-07-04 23:26 | disposition home or self-care (01) ==
LOC: EDUNIT# 16:28 → ER 16:30 → SDC 20:05 → WS 21:45 → SDC 23:26
PROVIDERS: ATTEND Obstetrics & Gynecology
DX: O03.4 Incomplete spontaneous abortion without complication (principal); E66.01 Morbid (severe) obesity due to excess calories; Z68.41 Body mass index [BMI] 40.0-44.9, adult
CPT/HCPCS: 36415; 71045; 76801; 76817; 80053; 81000; 83605; 85025; 85610; 85730; 87040; 87088; 88305; 96374